=== PATIENT | male | born 1965 | race Caucasian/White ===

== ENCOUNTER → 2017-05-27 | Outpatient (CLI) | payer MEDICAID, OTHER ==
[~2017-05-27] MED LIST: ALBU18HF PO; ASCO-96 PO; ASCO10004 PO; ASPI-496 PO; CYCL-259 PO; LISI40TA PO; MULT-516 PO; NAPR500T8 PO; OXYC1TAB9 PO; SUMA100T4 PO; TOPI100T8 PO
[2017-05-27 09:27] LABS: ASPARTATE AMINO TRANSFERASE 21 U/L (15-37); BLOOD UREA NITROGEN 13 mg/dL (7-18)
== END | disposition home or self-care (01) ==
LOC: STAR 08:05
PROVIDERS: ATTEND Otolaryngology
DX: Z01.818 Encounter for other preprocedural examination (principal); J34.3 Hypertrophy of nasal turbinates; J34.2 Deviated nasal septum
CPT/HCPCS: 36415; 80053

== ENCOUNTER 2017-06-03 06:32 | Observation (INO) | payer OTHER, MEDICAID ==
[2017-05-27 08:54] VITALS: BP 142/86
[~2017-06-03] VITALS: Ht 188 cm; Wt 163.6 kg
[2017-06-03] MEDS ORDERED: LACTATED RINGERS 1,000 ML IV SCH (06:54)
[2017-06-03] MEDS ORDERED: LIDOCAINE 1%, 2ML SQ PRN (07:00)
[2017-06-03] MEDS ORDERED: EPINEPHRINE 1 MG/ML, 1ML ONE (07:06)
[2017-06-03] MEDS ORDERED: LIDOCAINE/PF 1%, 30ML ONE (07:06)
[2017-06-03] MEDS ORDERED: OXYMETAZOLINE NASAL SPRAY 0.05%, 15ML ONE (07:06)
[2017-06-03] MEDS ORDERED: NEO/BACI/POLY/HC OINT 15GM ONE (07:06)
[2017-06-03] MEDS ORDERED: MIDAZOLAM 1 MG/ML, 2ML ONE (08:43)
[2017-06-03] MEDS ORDERED: FENTANYL PF 100 MCG/2ML ONE ×3 (08:43→10:02)
[2017-06-03] MEDS ORDERED: PROPOFOL 10 MG/ML, 20ML ONE (08:46)
[2017-06-03] MEDS ORDERED: ONDANSETRON 2MG/ML, 2ML ONE (08:46)
[2017-06-03] MEDS ORDERED: SUCCINYLCHOLINE 20 MG/ML, 10ML ONE (08:46)
[2017-06-03] MEDS ORDERED: DEXAMETHASONE 4 MG/ML, 1ML ONE (08:46)
[2017-06-03] MEDS ORDERED: CEFAZOLIN 1,000 MG ONE (08:46)
[2017-06-03] MEDS ORDERED: EPINEPHRINE 1 MG/ML, 1ML INFIL ONE (09:17)
[2017-06-03] MEDS ORDERED: HYDROmorphone 1 MG/ML, 1ML IV PRN (09:30)
[2017-06-03] MEDS ORDERED: HYDROcodone/APAP 7.5-325MG/15ML UDC PO PRN (09:30)
[2017-06-03] MEDS ORDERED: ACETAMINOPHEN 325 MG TABLET PO PRN (09:30)
[2017-06-03] MEDS ORDERED: OXYcodone 5 MG/5 ML ORAL.SOL UDC PO PRN (09:30)
[2017-06-03] MEDS ORDERED: ONDANSETRON 2MG/ML, 2ML IVPush PRN ×2 (09:30→17:00)
[2017-06-03] MEDS ORDERED: ACETAMINOPHEN 650 MG/20.3 ML UDC ONE (10:02)
[2017-06-03] MEDS: FENTANYL PF 100 MCG/2ML IV PRN ×2 (10:06→10:15)
[2017-06-03] MEDS ORDERED: OXYcodone 5 MG/5 ML ORAL.SOL UDC ONE (10:25)
[2017-06-03] MEDS ORDERED: OXYcodone/APAP 5/325MG TABLET PO PRN (15:00)
[2017-06-03] MEDS ORDERED: OXYcodone/APAP 5/325MG TABLET ONE (15:01)
[2017-06-03 16:40] VITALS: BP 128/77
[2017-06-03] MEDS: LACTATED RINGERS 1,000 ML IV SCH (17:00)
[2017-06-03] MEDS ORDERED: HYDROcodone/APAP 5/325 TABLET PO PRN ×2 (17:00→19:00)
[2017-06-03 21:00] VITALS: BP 114/72
[2017-06-03] MEDS: OXYcodone/APAP 5/325MG TABLET PO PRN (21:32)
[2017-06-03 23:23] VITALS: BP 146/80
[2017-06-04] MEDS: LACTATED RINGERS 1,000 ML IV SCH ×2 (01:20→09:30)
[2017-06-04 02:56] VITALS: BP 110/70
[2017-06-04] MEDS: OXYcodone/APAP 5/325MG TABLET PO PRN ×2 (03:05→10:02)
[2017-06-04 08:50] VITALS: BP 114/70
[2017-06-04 11:07] VITALS: BP 119/75
[2017-06-04] MEDS ORDERED: HYDR-3307 PO (11:54)
[2017-06-04] MEDS ORDERED: ONDA4TAB10 PO (11:55)
[2017-06-04] MEDS ORDERED: AMOX1TAB64 PO (11:56)
== END 2017-06-04 12:35 | disposition home or self-care (01) ==
LOC: OUT 06:32 → EDSTATUS 07:30 → 4NOR 16:37 → OUT 22:32 → 4NOR 22:33 → DCLOUNGE 06-04 11:50
PROVIDERS: ADMIT Otolaryngology; ATTEND Otolaryngology
DX: J34.2 Deviated nasal septum (principal); J34.3 Hypertrophy of nasal turbinates; I10 Essential (primary) hypertension; J45.909 Unspecified asthma, uncomplicated
CPT/HCPCS: 30140; 30520; 88300; G0378; J0171; J0330; J0690; J1100; J2250; J2405; J2704; J3010; J3490; J7120

== ENCOUNTER 2020-07-27 06:44 | Day surgery (SDC) | payer OTHER ==
[2020-07-24 16:48] LABS: ALANINE AMINOTRANSFERASE 29 U/L (12-78); ALBUMIN 3.9 g/dL (3.4-5.0); ANION GAP 5 mmol/L (5-15); CHLORIDE 108 mmol/L (98-107); CREATININE 0.75 mg/dL (0.7-1.3)
[2020-07-24 16:50] LABS: ALKALINE PHOSPHATASE 87 U/L (45-117); BILIRUBIN,TOTAL 0.4 mg/dL (0.2-1.0); TOTAL PROTEIN 7.3 g/dL (6.4-8.2)
[~2020-07-27] VITALS: Ht 188 cm; Wt 148.8 kg
[~2020-07-27 06:44] MED LIST changes: +AMOX1TAB64 PO; +ASCO100018 PO; -ASCO10004 PO; +HYDR-3246 PO; +ONDA4TAB10 PO; +OXYC1TAB18 PO; -OXYC1TAB9 PO
[2020-07-27] MEDS ORDERED: CHLORHEXIDINE 15 ML UDC MM STA (07:19)
[2020-07-27] MEDS ORDERED: LACTATED RINGERS 1,000 ML IV SCH (07:19)
[2020-07-27 07:21] VITALS: BP 129/84
[2020-07-27] MEDS ORDERED: PROMETHAZINE 25 MG/ML, 1ML IVPush PRN (09:30)
[2020-07-27] MEDS ORDERED: ALBUTEROL SULFATE 2.5 MG/3 ML NPPB PRN (09:30)
[2020-07-27] MEDS ORDERED: FENTANYL PF 100 MCG/2ML IV PRN (09:30)
[2020-07-27] MEDS ORDERED: LABETALOL 5MG/ML, 20ML IV PRN (09:30)
[2020-07-27] MEDS ORDERED: ACETAMINOPHEN 325 MG TABLET PO PRN (09:30)
[2020-07-27] MEDS ORDERED: PROPOFOL 10 MG/ML, 50ML ONE (10:24)
== END 2020-07-27 12:35 | disposition home or self-care (01) ==
LOC: OUT 06:44
PROVIDERS: ATTEND Internal Medicine Gastroenterology
DX: K92.1 Melena (principal); R14.0 Abdominal distension (gaseous); K25.9 Gastric ulcer, unspecified as acute or chronic, without hemorrhage or perforation; I10 Essential (primary) hypertension; K29.70 Gastritis, unspecified, without bleeding; G47.33 Obstructive sleep apnea (adult) (pediatric); J45.909 Unspecified asthma, uncomplicated; E66.01 Morbid (severe) obesity due to excess calories; Z79.899 Other long term (current) drug therapy
CPT/HCPCS: 36415; 43239; 45378; 80053; 87635; 88305; 88341; 88342; J2704; J7120

== ENCOUNTER → 2021-03-13 | Outpatient (CLI) | payer OTHER ==
[~2021-03-13] MED LIST changes: -CYCL-259 PO; +CYCL10TA2 PO; -HYDR-3246 PO; +HYDR-3248 PO; -LISI40TA PO; +LISI40TA9 PO
== END | disposition home or self-care (01) ==
LOC: RAD 17:38
PROVIDERS: ATTEND Nurse Practitioner Family
DX: M79.89 Other specified soft tissue disorders (principal)

== ENCOUNTER 2021-03-25 13:24 | Observation (INO) | payer OTHER ==
[~2021-03-25] VITALS: Ht 188 cm; Wt 157.7 kg
--- NOTE | 2021-03-25 13:29 | NUR ---
NO ANSWER FROM LOBBY TO TRIAGE.
--- NOTE | 2021-03-25 14:43 | NUR ---
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
[2021-03-25 14:58] LABS: BASOPHILS % (AUTO) 0 % (0-1); EOSINOPHILS % (AUTO) 3 % (1-7); LYMPHOCYTES % (AUTO) 14 % (22-44); MEAN CORPUSCULAR HEMOGLOBIN 31.7 pg (27.5-34.5); MEAN PLATELET VOLUME 8.1 fL (7.4-10.4); MONOCYTES % (AUTO) 17 % (2-9); NEUTROPHILS % (AUTO) 65 % (42-75); PLATELET COUNT 138 x10^3/uL (130-400); RED BLOOD COUNT 5.05 x10^6/uL (4.38-5.82); RED CELL DISTRIBUTION WIDTH 12.7 % (9.4-14.8)
[2021-03-25 15:12] LABS: ALANINE AMINOTRANSFERASE 33 U/L (12-78); ALBUMIN 3.3 g/dL (3.4-5.0); ANION GAP 6 mmol/L (5-15); CALCIUM 8.1 mg/dL (8.5-10.1); CHLORIDE 110 mmol/L (98-107); CREATININE 0.65 mg/dL (0.7-1.3)
[2021-03-25 15:16] LABS: ALKALINE PHOSPHATASE 61 U/L (45-117); BILIRUBIN,TOTAL 0.6 mg/dL (0.2-1.0); TOTAL PROTEIN 6.6 g/dL (6.4-8.2); TROPONIN I < 0.015 ng/mL (0.000-0.045)
--- NOTE | 2021-03-25 15:17 | NUR ---
PT CAME IN [place] LEFT ARM NUMBNESS AND CHEST PAIN X 2 DAYS. SAYS THE PAIN CURRENTLY ISNT THERE NOW BUT WOULD LIKE TO GET CHECKED OUT. PT RESTING IN [facility]. CONNECTED TO MONITORING EQUIPMENT
--- NOTE | 2021-03-25 15:44 | NUR ---
DURING MD ASSESSMENT PT BEGAN TO HAVE CHEST PAIN. STAT EKG PERFORMED- NORMAL SINUS. PT TO BE ADMITTED
[2021-03-25] MEDS ORDERED: ASPIRIN 81 MG TABLET CHEW ONE (15:45)
[2021-03-25] MEDS ORDERED: ASPIRIN 81 MG TABLET CHEW PO ONE (16:00)
[2021-03-25] MEDS ORDERED: ONDANSETRON ODT 4 MG PO PRN (18:00)
[2021-03-25] MEDS ORDERED: ONDANSETRON 2MG/ML, 2ML IVPush PRN (18:00)
[2021-03-25] MEDS ORDERED: ALBUTEROL HFA 90 MCG/SPRAY INLINE SCH (18:00)
[2021-03-25] MEDS ORDERED: POTASSIUM CHLORIDE 20 MEQ TAB.ER.PRT PO ONE (18:00)
[2021-03-25] MEDS ORDERED: ACETAMINOPHEN 325 MG TABLET PO PRN (18:00)
[2021-03-25 18:28] LABS: TROPONIN I < 0.015 ng/mL (0.000-0.045)
--- NOTE | 2021-03-25 18:47 | NUR ---
REPORT TO VERNON HERNANDEZ.
--- NOTE | 2021-03-25 18:47 | NUR ---
Report from Ashlee JUNIOR
[2021-03-25 19:43] VITALS: BP 104/76
[2021-03-25] MEDS: TOPIRAMATE 100 MG TABLET PO SCH (20:09)
[2021-03-25] MEDS: HEPARIN 5,000 UNITS/ML, 1ML SQ SCH (20:09)
[2021-03-25] MEDS ORDERED: ATORVASTATIN 40 MG TABLET PO SCH (21:00)
[2021-03-25 23:49] LABS: TROPONIN I < 0.015 ng/mL (0.000-0.045)
[2021-03-26 01:34] VITALS: BP 126/75
[2021-03-26] MEDS: HEPARIN 5,000 UNITS/ML, 1ML SQ SCH ×2 (04:22→12:11)
[2021-03-26 06:01] LABS: BASOPHILS % (AUTO) 1 % (0-1); EOSINOPHILS % (AUTO) 4 % (1-7); LYMPHOCYTES % (AUTO) 18 % (22-44); MEAN CORPUSCULAR HEMOGLOBIN 31.8 pg (27.5-34.5); MEAN CORPUSCULAR HGB CONC 34.1 g/dL (33.2-36.2); MEAN PLATELET VOLUME 8.5 fL (7.4-10.4); MONOCYTES % (AUTO) 20 % (2-9); NEUTROPHILS % (AUTO) 58 % (42-75); PLATELET COUNT 139 x10^3/uL (130-400); RED CELL DISTRIBUTION WIDTH 12.8 % (9.4-14.8)
[2021-03-26 06:08] LABS: ANION GAP 7 mmol/L (5-15); CALCIUM 8.4 mg/dL (8.5-10.1); CHLORIDE 113 mmol/L (98-107)
[2021-03-26 06:12] LABS: CHOL/HDL RATIO 3.5; CHOLESTEROL, TOTAL 104 mg/dL (140-239); CREATININE 0.58 mg/dL (0.7-1.3); HDL CHOL % 29 % (26-37); HDL CHOLESTEROL (DIRECT) 30 mg/dL (40-60); LDL CHOLESTEROL,CALCULATED 54 mg/dL (54-169); LDL/HDL RATIO 1.8 (0.5-3.0); TRIGLYCERIDES 98 mg/dL (50-200); VLDL CHOLESTEROL 20 mg/dL (0-25)
[2021-03-26 06:29] VITALS: BP 107/70
[2021-03-26] MEDS: TOPIRAMATE 100 MG TABLET PO SCH (08:34)
[2021-03-26] MEDS ORDERED: ASPIRIN 81 MG TABLET EC PO SCH (09:00)
[2021-03-26] MEDS ORDERED: LISINOPRIL 40 MG TABLET PO SCH (09:00)
== END 2021-03-26 13:09 | disposition home or self-care (01) ==
LOC: ED 15:51 → EDIP 17:09 → INTOOBSV 17:09 → 5SO 18:49 → DCLOUNGE 03-26 13:03
PROVIDERS: ADMIT Internal Medicine; ATTEND Internal Medicine
DX: R07.89 Other chest pain (principal); E87.6 Hypokalemia; I10 Essential (primary) hypertension; G47.30 Sleep apnea, unspecified; E66.01 Morbid (severe) obesity due to excess calories; E87.1 Hypo-osmolality and hyponatremia; Z87.11 Personal history of peptic ulcer disease; Z79.899 Other long term (current) drug therapy
CPT/HCPCS: 36415; 71046; 80048; 80053; 80061; 83735; 84484; 85025; 93005; 96372; 99285; G0378; J1644